=== PATIENT | male | born 1985 | race Caucasian/White ===

== ENCOUNTER 2019-08-22 15:32 | Emergency (ER) | payer BC ==
[~2019-08-22] VITALS: Ht 172.7 cm; Wt 81.6 kg
--- OUTSIDE RECORDS SUMMARY | 2019-08-22 15:34 | XMS REPORT ---
Author Author [facility] Address Unknown Phone Unavailable Care Team Providers Care [place] [employer] Name Role Phone Unavailable Unavailable Payers Payer Name Policy Type Policy Number Effective Date Expiration Date Problems This patient has no known problems. Allergies, Adverse Reactions, Alerts Allergy Name Allergy Type Status Severity Reaction(s) Onset Date Inactive Date Treating Clinician Comments No Known Allergies DA Active U 2019-04-11 00:00:00 No Known Allergies DA Active U 2013-04-21 00:00:00 Medications This patient has no known medications. Results Test Description Test Time Test Comments Text Results Atomic Results Result Comments BASIC METABOLIC PANEL 2019-04-11 12:14:00 SODIUM (test code=NA) 139 mmol/L 136-145 POTASSIUM (test code=K) 4.2 mmol/L 3.5-5.1 CHLORIDE (test code=CL) 104.0 mmol/L 98-107 CARBON DIOXIDE (test code=CO2) 27.0 mmol/L 21-32 ANION GAP (test code=GAP) 12.2 10-20 GLUCOSE (test code=GLU) 119 mg/dL 74-106 BLOOD UREA NITROGEN (test code=BUN) 13 mg/dL 7-18 GLOMERULAR FILTRATION RATE (test code=GFR) > 60 mL/min >=60 Estimated GFR by using Modified MDRD formula.Chronic kidney disease is defined as either kidney damageor GFR <60 mL/min/1.73 m2 for >3 months. CREATININE (test code=CREAT) 1.00 mg/dL 0.7-1.3 BUN/CREATININE RATIO (test code=BUN/CREA) 12.5 10-20 CALCIUM (test code=CA) 8.9 mg/dL 8.5-10.1 [id number] 12:14:00* Test Item Value Reference Range Comments MAGNESIUM (test code=MAG) 1.6 mg/dL 1.8-2.4 [id number] 12:14:00* Test Item Value Reference Range Comments TROPONIN-I (test code=TROPI) <0.015 ng/mL 0-0.045 BASIC METABOLIC [id number] 12:05:00* Test Item Value Reference Range Comments SODIUM (test code=NA) 139 mmol/L 136-145 POTASSIUM (test code=K) 4.2 mmol/L 3.5-5.1 CHLORIDE (test code=CL) 104.0 mmol/L 98-107 CARBON DIOXIDE (test code=CO2) mmol/L 21-32 ANION GAP (test code=GAP) 10-20 GLUCOSE (test code=GLU) mg/dL 74-106 BLOOD UREA NITROGEN (test code=BUN) mg/dL 7-18 GLOMERULAR FILTRATION RATE (test code=GFR) mL/min >=60 CREATININE (test code=CREAT) mg/dL 0.7-1.3 BUN/CREATININE RATIO (test code=BUN/CREA) 10-20 CALCIUM (test code=CA) mg/dL 8.5-10.1 [id number] 12:05:00* Test Item Value Reference Range Comments MAGNESIUM (test code=MAG) mg/dL 1.8-2.4 [id number] 12:05:00* Test Item Value Reference Range Comments TROPONIN-I (test code=TROPI) ng/mL 0-0.045 CBC W/O [id number] 11:55:00* Test Item Value Reference Range Comments WHITE BLOOD CELL (test code=WBC) K/mm3 4.5-12.5 RED BLOOD CELL (test code=RBC) mill/mm3 4.0-5.8 HEMOGLOBIN (test code=HGB) 15.0 gram/dL 13.0-17.5 HEMATOCRIT (test code=HCT) 45.9 % 42.0-52.0 MEAN CELL VOLUME (test code=MCV) fL 80-98 MEAN CELL HGB (test code=MCH) picogram 27.0-33.0 MEAN CELL HGB CONCETRATION (test code=MCHC) gram/dL 33.0-36.0 RED CELL DISTRIBUTION WIDTH (test code=RDW) % 11.6-16.2 PLATELET COUNT (test code=PLT) K/mm3 150-450 MEAN PLATELET VOLUME (test code=MPV) fL 6.7-11.0 CBC W/O [id number] 11:55:00* Test Item Value Reference Range Comments WHITE BLOOD CELL (test code=WBC) 7.4 K/mm3 4.5-12.5 RED BLOOD CELL (test code=RBC) 5.32 mill/mm3 4.0-5.8 HEMOGLOBIN (test code=HGB) 15.0 gram/dL 13.0-17.5 HEMATOCRIT (test code=HCT) 45.9 % 42.0-52.0 MEAN CELL VOLUME (test code=MCV) 86.3 fL 80-98 MEAN CELL HGB (test code=MCH) 28.2 picogram 27.0-33.0 MEAN CELL HGB CONCETRATION (test code=MCHC) 32.7 gram/dL 33.0-36.0 RED CELL DISTRIBUTION WIDTH (test code=RDW) 13.0 % 11.6-16.2 PLATELET COUNT (test code=PLT) 271 K/mm3 150-450 MEAN PLATELET VOLUME (test code=MPV) 10.2 fL 6.7-11.0 - XR HAND 3 + V [id number] 16:00:00 FAX: Socorro Bahena NP [place]: B St: REG Name: DULCE H[facility] : [birth year] Age/S: 33/M [address] [facility] Unit #: [id number] Loc: JEANNIE [place] [address] Phys: Socorro Bahena NP Acct: [id number] Dis Date: Status: REG ER PHONE #: [phone] Exam Date: 01/23/2019 1514 FAX #: [phone] Reason: hit wall EXAMS: CPT CODE: [id number] XR HAND 3 + V RT [id number] REASON FOR EXAM: hit wall EXAM ORDER DATE: 01/23/2019 2:38 PM Ordering M.DJazmine: Socorro Bahena NP PROCEDURE: - XR HAND 3 + V RT Comparison: None FINDINGS: Anteriorly angulated fracture invol ving the neck of the fifth metacarpal with swelling of the overlying soft tissues. No intra-articular extension. No other fractures. T he bones are appropriately aligned and the joint spaces are maintained. IMPRESSION: Boxer's fracture of the rig ht hand. No intra-articular extension. Remaining bones are within normal limits. at 16 00 Reported and signed by: Jadon Bauman MD CC: Socorro Bahena NP Technologist: MIKE LISA RT(R); ... Trnscrd Date/Time/By: 01/23/2019 (1600) : By: [email or web address] Orig Print D/T: S: 01/23/2019 (2392) PAGE 1 Signed Report
--- NOTE | 2019-08-22 15:40 | NUR ---
client evaluated in triage, IV started and blood collected. Addendum: 08/22/19 at 1544 by CRISTINA client refusing to have blood drawn and states that all he wants is an xray.
[2019-08-22 16:04] VITALS: BP 138/82
== END 2019-08-22 16:08 | disposition home or self-care (01) ==
LOC: ER 15:32
DX: R10.13 Epigastric pain (principal)
CPT/HCPCS: 99282

== ENCOUNTER 2024-06-19 12:19 | Emergency (ER) | payer BC ==
[~2024-06-19] VITALS: Ht 172.7 cm; Wt 81.6 kg
[2024-06-19 12:52] VITALS: TEMP 98.5
[2024-06-19] MEDS ORDERED: SODIUM CHLORIDE FLUSH 10 ML SYR IV PRN (13:15)
[2024-06-19 14:08] LABS: BASOPHILS # (AUTO) 0.1 (0.0-0.1); BASOPHILS % 1.1 % (0.0-1.0); EOSINOPHILS # (AUTO) 0.1 (0.0-0.4); EOSINOPHILS % 1.6 % (0.0-6.0); HEMATOCRIT 47.4 % (38.2-49.6); LYMPHOCYTES # (AUTO) 3.1 (1.0-3.2); LYMPHOCYTES % 34.6 % (18.0-39.1); MEAN CORPUSCULAR HEMOGLOBIN 28.4 pg (28-32); MEAN CORPUSCULAR HGB CONC 31.6 g/dL (31-35); MEAN CORPUSCULAR VOLUME 89.8 fL (81-99); MONOCYTES # (AUTO) 0.7 (0.2-0.8); MONOCYTES % 7.3 % (4.4-11.3); NEUTROPHILS # (AUTO) 4.9 (2.1-6.9); PLATELET COUNT 263 x10e3/uL (140-360); RED BLOOD COUNT 5.28 x10e6/uL (4.3-5.7); RED CELL DISTRIBUTION WIDTH 12.5 % (11.7-14.4); WHITE BLOOD COUNT 8.91 x10e3/uL (4.8-10.8)
[2024-06-19] MEDS: KETOROLAC TROMETHAMINE 30 MG/ML VIAL IV STA (14:08)
[2024-06-19 14:22] LABS: ALANINE AMINOTRANSFERASE 20 IU/L (0-55); ALBUMIN 4.4 g/dL (3.5-5.0); ALBUMIN/GLOBULIN RATIO 1.3 (0.8-2.0); ALKALINE PHOSPHATASE 56 IU/L (40-150); ANION GAP 16.8 mmol/L (8-16); BILIRUBIN,TOTAL 0.6 mg/dL (0.2-1.2); BLOOD UREA NITROGEN 19 mg/dL (7-26); BUN/CREATININE RATIO 17 (6-25); CALCIUM 9.7 mg/dL (8.4-10.2); CARBON DIOXIDE 23 mmol/L (22-29); CHLORIDE 103 mmol/L (98-107); CREATININE, SERUM 1.12 mg/dL (0.72-1.25); EST GLOMERULAR FILTRATION RATE 85 ML/MIN (>=60); GLUCOSE 112 mg/dL (74-118); POTASSIUM 3.8 mmol/L (3.5-5.1); SODIUM 139 mmol/L (136-145); TOTAL PROTEIN 7.9 g/dL (6.5-8.1)
[2024-06-19 14:31] LABS: TROPONIN I < 0.001 ng/mL (0-0.300)
[2024-06-19 16:00] VITALS: PULSE 66; RESP 16
[2024-06-19 17:48] VITALS: BP 122/64; PULSE 66; RESP 15; O2SAT 97
== END 2024-06-19 17:50 | disposition home or self-care (01) ==
LOC: ER 12:49
DX: R00.2 Palpitations (principal); R07.89 Other chest pain; Z87.19 Personal history of other diseases of the digestive system
CPT/HCPCS: 36415; 71046; 80053; 84484; 85025; 85379; 93005; 94760; 99283; J1885

== ENCOUNTER 2024-12-06 14:03 | Emergency (ER) | payer BC ==
[~2024-12-06] VITALS: Ht 170.2 cm; Wt 100.7 kg
[2024-12-06 14:05] VITALS: PULSE 95; RESP 20; TEMP 98.3
[2024-12-06] MEDS ORDERED: BENZONATATE200 MG PO (14:31)
[2024-12-06 15:33] VITALS: BP 122/72; O2SAT 97
== END 2024-12-06 15:20 | disposition home or self-care (01) ==
LOC: FSED 14:16
DX: R05.9 Cough, unspecified (principal); J06.9 Acute upper respiratory infection, unspecified; J44.9 Chronic obstructive pulmonary disease, unspecified
CPT/HCPCS: 99282